=== PATIENT | female | born 1935 | race Asian ===

== ENCOUNTER 2020-05-06 09:41 | Outpatient (CLI) | payer MEDICARE, MEDICAID | END 2020-05-06 09:42 | disposition home or self-care (01) | LOC: CSHRAD 09:41 | PROVIDERS: ATTEND Nurse Practitioner | DX: I48.91 Unspecified atrial fibrillation (principal); Z51.81 Encounter for therapeutic drug level monitoring; R94.31 Abnormal electrocardiogram [ECG] [EKG] | CPT/HCPCS: 93005 ==